=== PATIENT | male | born 1945 | race Caucasian/White ===

== ENCOUNTER → 2024-04-09 | Outpatient (CLI) | payer BC, MEDICARE, SELFPAY ==
[2024-04-09 08:00] LABS: Collection Type, Urine Clean Catch; RBC,Urine 0 /hpf (0-3)
[2024-04-09 08:33] LABS: Basophils % (Auto) 1 % (0-2.5); Eosinophils # (Auto) 0.1 Thou/mm3 (0.0-0.5); Eosinophils % (Auto) 2 % (0-10); Hemoglobin 15.6 g/dL (13.5-16.0); Immature Granulocytes % (Auto) 0 % (0-0); Immature Granulocytes Auto 0.01 Thou/mm3 (0.00-0.00); Lymphocytes # (Auto) 1.2 Thou/mm3 (1.0-4.8); Lymphocytes % (Auto) 25 % (10-50); Mean Corpuscular HGB Conc 33.9 g/dl (31.0-37.0); Mean Corpuscular Hemoglobin 30.1 pg (25.0-35.0); Mean Corpuscular Volume 89 fL (80-100); Monocytes # (Auto) 0.4 Thou/mm3 (0.0-0.8); Monocytes % (Auto) 9 % (0-12); Neutrophils % (Auto) 63 % (37-80); Nucleated Red Blood Cell % 0 /100 WBC (0); Platelet Count 188 Thou/mm3 (140-440); RDW Standard Deviation 37.7 fL (35.1-43.9); Red Blood Count 5.18 Miln/mm3 (4.50-5.90); White Blood Count 4.8 Thou/mm3 (3.8-10.6)
[2024-04-09 08:44] LABS: Alanine Aminotransferase 25 U/L (10-49); Albumin, Serum 4.7 gm/dL (3.4-4.8); Albumin/Globulin Ratio 2.4 (1.2-2.2); Alkaline Phosphatase 84 U/L (46-116); Anion Gap 6 (7-16); Aspartate Amino Transferase 21 U/L (0-34); BUN/Creatinine Ratio 15 Ratio (12-20); Bilirubin,Total 1.1 mg/dL (0.3-1.2); Blood Urea Nitrogen 19 mg/dL (9-23); Carbon Dioxide 28.2 mMol/L (20.0-31.0); Cardiac Risk Estimate 4.4 RATIO (4.0-6.7); Chloride 103 mMol/L (98-107); Cholesterol 188 mg/dL (132-200); Creatinine (Component) 1.3 mg/dL (0.6-1.3); Glucose 118 mg/dL (74-106); HDL Cholesterol 43 mg/dL (40-60); LDL Cholesterol,Calculated 104 mg/dL (0-130); Osmolality,Calculated 277 (275-295); Potassium 4.6 mMol/L (3.4-5.1); Sodium 137 mMol/L (136-145); Thyroid Stimulating Hormone 2.43 uIU/mL (0.55-4.78); Total Protein 6.7 gm/dL (5.7-8.2); Triglycerides 204 mg/dL (30-150); eGFR 56 See Note
[2024-04-09 08:47] LABS: Bilirubin,Urine Negative (Negative); Blood,Urine Negative (Negative); Clarity,Urine Clear (Clear/Hazy); Color,Urine Yellow (Lt Yel-Yel); Glucose, Urine Negative (Negative); Ketones,Urine Negative (Negative); Leukocyte Esterase,Urine Negative (Negative); Nitrite,Urine Negative (Negative); PH,Urine 5.5 (5.0-7.0); Protein,Urine Trace (Neg - Trace); Specific Gravity,Urine 1.022 (1.001-1.035); Squamous Epithelial Cell,Urine < 1 /hpf (0-5); Urobilinogen,Urine Negative mg/dL (0.0-1.0); WBC,Urine 1 /hpf (0-5)
[2024-04-09 08:58] LABS: Sperm,Urine Present
== END | disposition home or self-care (01) ==
PROVIDERS: PCP Internal Medicine; Referring Provider Internal Medicine; Visit Provider Internal Medicine
DX: I10 Essential (primary) hypertension (principal); E78.5 Hyperlipidemia, unspecified
CPT/HCPCS: 36415; 80053; 80061; 81001; 84153; 84443; 85025

== ENCOUNTER → 2024-10-12 | Outpatient (CLI) | payer BC, MEDICARE, SELFPAY ==
[2024-10-12 11:04] LABS: Parathyroid Hormone Intact 55.3 pg/ml (18.5-88.0)
[2024-10-12 11:16] LABS: Alanine Aminotransferase 17 U/L (10-49); Albumin, Serum 4.5 gm/dL (3.4-4.8); Albumin/Globulin Ratio 2.1 (1.2-2.2); Alkaline Phosphatase 73 U/L (46-116); Anion Gap 12 (7-16); Aspartate Amino Transferase 16 U/L (0-34); BUN/Creatinine Ratio 15 Ratio (12-20); Blood Urea Nitrogen 18 mg/dL (9-23); Carbon Dioxide 24.3 mMol/L (20.0-31.0); Cardiac Risk Estimate 3.9 RATIO (4.0-6.7); Chloride 105 mMol/L (98-107); Cholesterol 180 mg/dL (132-200); Creatinine (Component) 1.2 mg/dL (0.6-1.3); Globulin 2.1 gm/dL (2.3-3.5); Glucose 125 mg/dL (74-106); HDL Cholesterol 46 mg/dL (40-60); LDL Cholesterol,Calculated 97 mg/dL (0-130); Osmolality,Calculated 284 (275-295); Potassium 4.2 mMol/L (3.4-5.1); Sodium 141 mMol/L (136-145); Total Protein 6.6 gm/dL (5.7-8.2); Triglycerides 183 mg/dL (30-150); eGFR > 60 See Note
== END | disposition home or self-care (01) ==
LOC: COPL 08:54
PROVIDERS: PCP Internal Medicine; Referring Provider Internal Medicine; Visit Provider Internal Medicine
DX: I12.9 Hypertensive chronic kidney disease with stage 1 through stage 4 chronic kidney disease, or unspecified chronic kidney disease (principal); N18.30 Chronic kidney disease, stage 3 unspecified; E78.5 Hyperlipidemia, unspecified
CPT/HCPCS: 36415; 80053; 80061; 83970

== ENCOUNTER → 2025-04-15 | Outpatient (CLI) | payer BC, MEDICARE, SELFPAY ==
[2025-04-15 09:27] LABS: Basophils # (Auto) 0.0 Thou/mm3 (0.0-0.2); Basophils % (Auto) 0 % (0-2.5); Eosinophils # (Auto) 0.1 Thou/mm3 (0.0-0.5); Eosinophils % (Auto) 1 % (0-10); Hematocrit 48.1 % (41.0-53.0); Hemoglobin 16.4 g/dL (13.5-16.0); Immature Granulocytes Auto 0.01 Thou/mm3 (0.00-0.00); Lymphocytes # (Auto) 0.9 Thou/mm3 (1.0-4.8); Lymphocytes % (Auto) 20 % (10-50); Mean Corpuscular HGB Conc 34.1 g/dl (31.0-37.0); Mean Corpuscular Hemoglobin 30.1 pg (25.0-35.0); Mean Corpuscular Volume 88 fL (80-100); Monocytes # (Auto) 0.4 Thou/mm3 (0.0-0.8); Monocytes % (Auto) 8 % (0-12); Neutrophils # (Auto) 3.3 Thou/mm3 (1.8-7.7); Neutrophils % (Auto) 70 % (37-80); Nucleated Red Blood Cell # 0.00 Thou/mm3 (0.00-0.00); Nucleated Red Blood Cell % 0 /100 WBC (0); Platelet Count 149 Thou/mm3 (140-440); RDW Standard Deviation 38.0 fL (35.1-43.9); Red Blood Count 5.45 Miln/mm3 (4.50-5.90); White Blood Count 4.7 Thou/mm3 (3.8-10.6)
[2025-04-15 09:46] LABS: PSA Medicare Annual Scrn 0.84 ng/mL (0-4.00)
[2025-04-15 09:48] LABS: Parathyroid Hormone Intact 40.6 pg/ml (18.5-88.0)
[2025-04-15 09:51] LABS: Vitamin B12 315 pg/mL (211-911); Vitamin D 25 Hydroxy Total 45.5 ng/mL (7.3-40.2)
[2025-04-15 09:53] LABS: Glucose Estimated Average 117 mg/dL (80-131); Hemoglobin A1C 5.7 % Hgb (4.8-6.0)
[2025-04-15 09:54] LABS: Alanine Aminotransferase 23 U/L (10-49); Albumin, Serum 4.9 gm/dL (3.4-4.8); Albumin/Globulin Ratio 2.7 (1.2-2.2); Alkaline Phosphatase 75 U/L (46-116); Anion Gap 10 (7-16); Aspartate Amino Transferase 22 U/L (0-34); BUN/Creatinine Ratio 13 Ratio (12-20); Bilirubin,Total 1.1 mg/dL (0.3-1.2); Blood Urea Nitrogen 15 mg/dL (9-23); Calcium 9.4 mg/dL (8.3-10.6); Calcium (Corrected) 9.4 mg/dL (8.5-10.1); Carbon Dioxide 27.2 mMol/L (20.0-31.0); Cardiac Risk Estimate 3.9 RATIO (4.0-6.7); Chloride 105 mMol/L (98-107); Cholesterol 214 mg/dL (132-200); Creatinine (Component) 1.2 mg/dL (0.6-1.3); Globulin 1.8 gm/dL (2.3-3.5); Glucose 126 mg/dL (74-106); HDL Cholesterol 55 mg/dL (40-60); LDL Cholesterol,Calculated 127 mg/dL (0-130); Osmolality,Calculated 285 (275-295); Potassium 4.1 mMol/L (3.4-5.1); Sodium 142 mMol/L (136-145); Thyroid Stimulating Hormone 2.40 uIU/mL (0.55-4.78); Total Protein 6.7 gm/dL (5.7-8.2); Triglycerides 162 mg/dL (30-150); Uric Acid 4.3 mg/dL (3.7-9.2); eGFR > 60 See Note
== END | disposition home or self-care (01) ==
LOC: COPL 08:44
PROVIDERS: PCP Internal Medicine; Referring Provider Internal Medicine; Visit Provider Internal Medicine
DX: I12.9 Hypertensive chronic kidney disease with stage 1 through stage 4 chronic kidney disease, or unspecified chronic kidney disease (principal); N18.30 Chronic kidney disease, stage 3 unspecified; E78.5 Hyperlipidemia, unspecified
CPT/HCPCS: 36415; 80053; 80061; 81001; 82043; 82306; 82570; 82607; 83036; 83970; 84153; 84443; 84550; 85025; G0103

== ENCOUNTER 2025-05-24 09:15 | Day surgery (SDC) | payer MEDICARE, BC, SELFPAY ==
[2025-05-20 15:36] VITALS: BMI 26.2
--- NOTE | 2025-05-21 07:00 | EKG_ITS ---
[facility] Test Date: 2025-05-21 Pat Name: SUJATHA CORONADO Department: Room: - Gender: Male Acls Nurse: PARTH : 1945 Requested By: Petros Han Order Number: [id number] Reading MD: Petros Han Measurements Intervals Ledbetter Rate: 54 P: 150 VT: 186 QRS: 192 QRSD: 82 T: 156 QT: 424 QTc: 403 Interpretive Statements SINUS BRADYCARDIA ARM LEADS REVERSED [INVERTED P AND QRS IN I] No previous ECG available for comparison /[id number]
[2025-05-21 08:59] LABS: Basophils # (Auto) 0.0 Thou/mm3 (0.0-0.2); Basophils % (Auto) 1 % (0-2.5); Eosinophils # (Auto) 0.1 Thou/mm3 (0.0-0.5); Eosinophils % (Auto) 2 % (0-10); Hematocrit 45.6 % (41.0-53.0); Hemoglobin 15.8 g/dL (13.5-16.0); Immature Granulocytes Auto 0.03 Thou/mm3 (0.00-0.00); Lymphocytes # (Auto) 1.2 Thou/mm3 (1.0-4.8); Lymphocytes % (Auto) 21 % (10-50); Mean Corpuscular HGB Conc 34.6 g/dl (31.0-37.0); Mean Corpuscular Hemoglobin 30.3 pg (25.0-35.0); Mean Corpuscular Volume 87 fL (80-100); Monocytes # (Auto) 0.5 Thou/mm3 (0.0-0.8); Monocytes % (Auto) 9 % (0-12); Neutrophils # (Auto) 4.1 Thou/mm3 (1.8-7.7); Neutrophils % (Auto) 68 % (37-80); Nucleated Red Blood Cell # 0.00 Thou/mm3 (0.00-0.00); Nucleated Red Blood Cell % 0 /100 WBC (0); Platelet Count 172 Thou/mm3 (140-440); RDW Standard Deviation 37.5 fL (35.1-43.9); Red Blood Count 5.22 Miln/mm3 (4.50-5.90); White Blood Count 6.0 Thou/mm3 (3.8-10.6)
[2025-05-21 09:05] LABS: Anion Gap 5 (7-16); BUN/Creatinine Ratio 12 Ratio (12-20); Blood Urea Nitrogen 17 mg/dL (9-23); Calcium 9.4 mg/dL (8.3-10.6); Carbon Dioxide 30.6 mMol/L (20.0-31.0); Chloride 104 mMol/L (98-107); Creatinine (Component) 1.4 mg/dL (0.6-1.3); Estimated Creatinine Clearance 42.8 mL/min (>60); Glucose 119 mg/dL (74-106); Osmolality,Calculated 281 (275-295); Potassium 5.2 mMol/L (3.4-5.1); Sodium 140 mMol/L (136-145); eGFR 51 See Note
[2025-05-21 09:08] LABS: INR 1.0 (0.9-1.3); Partial Thromboplastin Time 25.4 Seconds (22.0-36.0); Prothrombin Time 10.3 Seconds (9.0-12.2)
[2025-05-24] VITALS (10 sets, daily range): BP systolic 105–154; BP diastolic 71–100; PULSE 56–75; RESP 14–20; TEMP 36.4–36.7; O2SAT 92–96
--- NOTE | 2025-05-24 16:07 | PD.CARDCATH ---
Cardiac Cath Procedure Procedure Name Date of procedure: 05/24/25 DRY ROOM OPERATOR: Petros Han MD PROCEDURE PERFORMED: 1. Left heart cardiac catheterization- Left and right coronary angiograms with LVEDP measurement and left ventriculogram 2. Ultrasound-guided access of the right radial artery 3. Conscious sedation for 30 minutes.. Procedure Narrative HISTORY AND INDICATIONS: Derrick Horn, a 80-year-old man, with PMH of HTN, HLD, CKD stage III, GERD, s/p Sarbjit fundoplication (2013) and prediabetes. Patient had ischemic cardiac work up as he was experiencing chest pain. NST showed Abnormal myocardial perfusion study as there is small area with decreased uptake in the mid to basal inferolateral segment of the LV wall with stress and improves with rest indicating possible ischemia. EF at 89%. Normal TID and wall motion. Patient was brought in for an elective cardiac catheterization. Patient was explained the risk benefits and alternatives of performing a left heart cardiac catheterization including the risk of bleeding, heart attack, stroke and in detail and the agreeable for the procedure. Consent signed, placed in the chart and H&P updated. DESCRIPTION OF PROCEDURE: The patient was brought to the cardiac catheterization lab and all aseptic precautions were followed. Patient was given 1 Mg of Versed and 50 mcg of fentanyl for moderate conscious sedation. 2 mL of lidocaine was given in the right wrist. The right radial artery was accessed via the ultrasound guidance as well as micropuncture technique. A 6 [place] glide sheath was introduced. We then used a 5 [place] TIG 4 catheter to perform the left and right coronary angiograms as well as a left ventriculogram which showed the following findings. 1. Left ventricular ejection fraction was normal at 55-60% without any regional wall motion abnormalities. LVEDP was normal at 5 mmHg. There was no significant transvalvular aortic gradient. 2. Right dominant circulation 3. Left main artery is a large-caliber vessel gives rise to LAD, LCX and without any significant disease. 4. LAD is a large sized artery with 30-40% stenosis of proximal segment, moderate 10 mm bridging at the mid segment, gives rise to a medium size diagonal and without show any significant disease. 5. LCx is a large sized artery, gives rise to a medium OM1 and small OM2 without any significant disease. 6. RCA is a large artery with 20-30% stenosis of the mid segment, gives rise to a medium RPDA and RPL without any significant disease. A radial band was used to achieve the hemostasis of the right radial artery access. 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 Complications: None Specimens: None Blood loss: Estimated 5-10 ml Summary/findings: 1. Abnormal Stress test: LHC showed mild CAD with 30-40% stenosis of proximal LAD, moderate 10 mm bridging at the mid LAD, 20-30% stenosis of mid RCA. Rest of the coronaries with only minimal luminal irregularities and no angiographically significant obstruction. 2. LVEF normal at 55-60% and LVEDP normal at 5 mmHg. No significant transvalvular aortic gradient. Recommendations: 1. Recommend aggressive medical treatment with aspirin, statin and betablocker. aggressive risk factor modification. 2. Recommended no lifting more than 5 pounds for next 7-10 days and follow up in my office in 7 days. Petros Han MD Interventional Cardiology.
== END 2025-05-24 15:05 | disposition home or self-care (01) ==
PROVIDERS: PCP Internal Medicine; Referring Provider Internal Medicine Cardiovascular Disease; Visit Provider Internal Medicine Cardiovascular Disease
PROC: (CPT 93458; principal; 2025-05-24 11:00)
DX: I25.10 Atherosclerotic heart disease of native coronary artery without angina pectoris (principal); R94.39 Abnormal result of other cardiovascular function study; R94.31 Abnormal electrocardiogram [ECG] [EKG]; E78.2 Mixed hyperlipidemia; I12.9 Hypertensive chronic kidney disease with stage 1 through stage 4 chronic kidney disease, or unspecified chronic kidney disease; N18.30 Chronic kidney disease, stage 3 unspecified; Z01.810 Encounter for preprocedural cardiovascular examination; Z79.899 Other long term (current) drug therapy
CPT/HCPCS: 93458; 36415; 80048; 85025; 85610; 85730; 93005; 99152; 99153; A4649; C1887; C1894; J0168; J0461; J1643; J2250; J2312; J2371; J3010; J3490; Q9967; A9270; J2305